=== PATIENT | female | born 1980 | race Caucasian/White ===

== ENCOUNTER 2019-07-29 11:50 | Emergency (ER) | payer OTHER, SELFPAY ==
[~2019-07-29] VITALS: Ht 157.5 cm; Wt 60.0 kg
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
[2019-07-29] MEDS ORDERED: hydrOXyzine 50MG TABLET ONE (12:16)
--- NOTE | 2019-07-29 12:30 | NUR ---
PT MEDICATED PER EMAR.
[2019-07-29 12:35] VITALS: BP 124/92
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
== END 2019-07-29 12:40 | disposition home or self-care (01) ==
LOC: ED 12:30
DX: F41.1 Generalized anxiety disorder (principal)
CPT/HCPCS: 99283; Q0177